=== PATIENT | female | born 1970 | race Caucasian/White ===

== ENCOUNTER 2024-01-24 11:45 | Inpatient (IN) | payer BC ==
[2024-01-24] MEDS ORDERED: Sodium Chloride 0.9% 10 ML Syringe FLUSH PRN (11:49)
[2024-01-24 12:03] LABS: BASOPHILS ABSOLUTE AUTO 0.07 K/uL (0.00-0.20); BASOPHILS PERCENT AUTO 0.8 % (0.0-1.0); EOSINOPHILS ABSOLUTE AUTO 0.23 K/uL (0.00-0.45); EOSINOPHILS PERCENT AUTO 2.6 % (0.0-6.0); HEMATOCRIT 40.3 % (37.0-47.0); IMMATURE GRAN ABSOLUTE AUTO 0.02 K/uL (0.00-0.05); IMMATURE GRAN PERCENT AUTO 0.2 % (0.0-0.4); LYMPHOCYTES ABSOLUTE AUTO 3.31 K/uL (1.00-4.80); LYMPHOCYTES PERCENT AUTO 37.1 % (24.0-44.0); MEAN CORPUSCULAR HEMOGLOBIN 30.3 pg (28.0-32.0); MEAN CORPUSCULAR HGB CONC 34.7 g/dL (32.0-36.0); MEAN CORPUSCULAR VOLUME 87.2 fL (83.0-99.0); MEAN PLATELET VOLUME 9.5 fL (9.4-12.3); MONOCYTES ABSOLUTE AUTO 0.53 K/uL (0.00-0.80); MONOCYTES PERCENT AUTO 5.9 % (0.0-8.0); NEUTROPHILS ABSOLUTE AUTO 4.77 K/uL (1.80-7.70); NEUTROPHILS PERCENT AUTO 53.4 % (41.0-71.0); PLATELET COUNT,PLT 342 K/uL (150-400); RED BLOOD CELL COUNT 4.62 M/uL (4.10-5.30); WHITE BLOOD CELL COUNT,WBC 8.93 K/uL (3.9-11.3)
[2024-01-24] MEDS: Sodium Chloride 0.9% 1,000 ML IV ONE (12:04)
[2024-01-24] MEDS: Ondansetron 4 MG/2 ML SDV IVPUSH ONE (12:05)
[2024-01-24] MEDS: Sodium Chloride 0.9% 2.5 ML Syringe FLUSH PRN (12:05)
[2024-01-24 12:29] LABS: ALBUMIN 3.8 g/dL (3.4-5.0); BILIRUBIN TOTAL 0.6 mg/dL (0.2-1.0); CALCIUM 9.8 mg/dL (8.5-10.1); CARBON DIOXIDE,CO2 25.7 mmol/L (21.0-32.0); CREATININE 0.7 mg/dL (0.6-1.0); EST CRCL DRUG DOSING (CG) 81.18 mL/min; POTASSIUM,K 3.6 mmol/L (3.5-5.1); PROTEIN TOTAL,TP 7.6 g/dL (6.4-8.2)
[2024-01-24 12:35] LABS: APPEARANCE,URINE SLT CLOUDY; BILIRUBIN,URINE NEGATIVE (NEGATIVE); COLOR,URINE YELLOW; GLUCOSE,URINE NEGATIVE (NEGATIVE); KETONES,URINE NEGATIVE (NEGATIVE); LEUKOCYTE ESTERASE,URINE NEGATIVE (NEGATIVE); NITRITE,URINE NEGATIVE (NEGATIVE); OCCULT BLOOD,URINE NEGATIVE (NEGATIVE); PH,URINE 6.5 (5.0-8.0); PROTEIN,URINE NEGATIVE (NEGATIVE); UROBILINOGEN,URINE 0.2 EU/dL (<2.0)
[2024-01-24] MEDS: Iopamidol 755 MG/ML 500 ML Multipack Bottle IVPUSH STA (12:59)
[2024-01-24] MEDS: Piperacillin/Tazobactam 3.375 GM in Sodium Chloride 0.9% 100 ML IV ONE (14:05)
[2024-01-24] MEDS ORDERED: Propofol 200 MG/20 ML SDV ONE ×4 (16:34→22:14)
[2024-01-24] MEDS ORDERED: fentaNYL 100 MCG/2 ML SDV ONE ×2 (16:34→21:37)
[2024-01-24] MEDS ORDERED: Bupivacaine 0.5% 30 ML SDV ONE (16:35)
[2024-01-24] MEDS ORDERED: Rocuronium Bromide 50 MG/5 ML Syringe ONE ×3 (16:36→21:41)
[2024-01-24] MEDS ORDERED: dexmedeTOMIDine HCl 200 MCG/2 ML SDV ONE (16:36)
[2024-01-24] MEDS ORDERED: Bupivacaine 0.25% 30 ML SDV ONE (16:52)
[2024-01-24] MEDS ORDERED: Ropivacaine 0.5% 5 MG/ML 30 ML SDV ONE (16:52)
[2024-01-24] MEDS ORDERED: Dexamethasone 4 MG/ML 5 ML MDV ONE (17:34)
[2024-01-24] MEDS ORDERED: Ondansetron 4 MG/2 ML SDV ONE (17:34)
[2024-01-24] MEDS ORDERED: Sugammadex Sodium 200 MG/2 ML VIAL IV ONE (18:13)
[2024-01-24] MEDS ORDERED: Ketorolac 30 MG/ML SDV ONE (18:13)
[2024-01-24] MEDS ORDERED: Water For Injection, Sterile 20 ML ONE (18:21)
[2024-01-24] MEDS ORDERED: Magnesium Sulfate (4.06 MEQ/ML) 5 GM/10 ML SDV ONE (18:24)
[2024-01-24] MEDS ORDERED: Ketamine HCL/NACL, ISO-OSM 50 MG/5 ML Syringe ONE (20:22)
[2024-01-24] MEDS ORDERED: propofoL 50 ML ONE ×2 (20:38→21:14)
[2024-01-24] MEDS ORDERED: HYDROmorphone 2 MG/ML Syringe IVPUSH PRN (22:42)
[2024-01-24] MEDS ORDERED: Naloxone 0.4 MG/ML SDV IVPUSH PRN (22:42)
[2024-01-24] MEDS ORDERED: Ondansetron 4 MG/2 ML SDV IVPUSH PRN (22:42)
[2024-01-24] MEDS ORDERED: Acetaminophen/HYDROcodone 325-5 MG Tab PO PRN (22:42)
[2024-01-24] MEDS ORDERED: Acetaminophen 1,000 MG in Premix Bag 1 BAG IV PRN (22:50)
[2024-01-25] MEDS: Piperacillin/Tazobactam 3.375 GM in Sodium Chloride 0.9% 100 ML IV ONE (00:20)
[2024-01-25] MEDS: HYDROmorphone 1 MG/ML Syringe ONE (00:21)
[2024-01-25] MEDS: Sodium Chloride 0.9% 1,000 ML IV SCH (01:03)
[2024-01-25] MEDS: Piperacillin/Tazobactam 4.5 GM in Sodium Chloride 0.9% 100 ML IV SCH (01:03)
[2024-01-25] MEDS: Sodium Chloride 0.9% 100 ML IV ONE (03:32)
[2024-01-25] MEDS: Sodium Chloride 0.9% 100 ML ONE (03:32)
[2024-01-25 06:19] LABS: BASOPHILS ABSOLUTE AUTO 0.02 K/uL (0.00-0.20); BASOPHILS PERCENT AUTO 0.1 % (0.0-1.0); HEMATOCRIT 43.5 % (37.0-47.0); HEMOGLOBIN 14.4 g/dL (12.0-16.0); IMMATURE GRAN ABSOLUTE AUTO 0.05 K/uL (0.00-0.05); IMMATURE GRAN PERCENT AUTO 0.4 % (0.0-0.4); LYMPHOCYTES ABSOLUTE AUTO 1.21 K/uL (1.00-4.80); LYMPHOCYTES PERCENT AUTO 8.8 % (24.0-44.0); MEAN CORPUSCULAR HEMOGLOBIN 29.9 pg (28.0-32.0); MEAN CORPUSCULAR HGB CONC 33.1 g/dL (32.0-36.0); MEAN CORPUSCULAR VOLUME 90.2 fL (83.0-99.0); MEAN PLATELET VOLUME 10.1 fL (9.4-12.3); MONOCYTES ABSOLUTE AUTO 0.26 K/uL (0.00-0.80); MONOCYTES PERCENT AUTO 1.9 % (0.0-8.0); NEUTROPHILS PERCENT AUTO 88.8 % (41.0-71.0); PLATELET COUNT,PLT 353 K/uL (150-400); RED BLOOD CELL COUNT 4.82 M/uL (4.10-5.30); WHITE BLOOD CELL COUNT,WBC 13.74 K/uL (3.9-11.3)
[2024-01-25 06:36] LABS: CALCIUM 9.1 mg/dL (8.5-10.1); CARBON DIOXIDE,CO2 26.2 mmol/L (21.0-32.0); EST CRCL DRUG DOSING (CG) 56.83 mL/min; POTASSIUM,K 3.6 mmol/L (3.5-5.1)
[2024-01-25] MEDS: Pantoprazole 40 MG in Sodium Chloride 0.9% 10 ML IVPUSH SCH (09:02)
[2024-01-25] MEDS: HYDROmorphone 1 MG/ML Syringe IVPUSH PRN (09:54)
[2024-01-26 06:16] LABS: BASOPHILS ABSOLUTE AUTO 0.03 K/uL (0.00-0.20); BASOPHILS PERCENT AUTO 0.3 % (0.0-1.0); EOSINOPHILS ABSOLUTE AUTO 0.07 K/uL (0.00-0.45); EOSINOPHILS PERCENT AUTO 0.7 % (0.0-6.0); HEMATOCRIT 32.6 % (37.0-47.0); HEMOGLOBIN 10.9 g/dL (12.0-16.0); IMMATURE GRAN ABSOLUTE AUTO 0.03 K/uL (0.00-0.05); IMMATURE GRAN PERCENT AUTO 0.3 % (0.0-0.4); LYMPHOCYTES ABSOLUTE AUTO 2.73 K/uL (1.00-4.80); MEAN CORPUSCULAR HEMOGLOBIN 30.1 pg (28.0-32.0); MEAN CORPUSCULAR HGB CONC 33.4 g/dL (32.0-36.0); MEAN CORPUSCULAR VOLUME 90.1 fL (83.0-99.0); MEAN PLATELET VOLUME 9.8 fL (9.4-12.3); MONOCYTES ABSOLUTE AUTO 0.67 K/uL (0.00-0.80); MONOCYTES PERCENT AUTO 6.4 % (0.0-8.0); NEUTROPHILS ABSOLUTE AUTO 6.95 K/uL (1.80-7.70); NEUTROPHILS PERCENT AUTO 66.3 % (41.0-71.0); PLATELET COUNT,PLT 262 K/uL (150-400); RED BLOOD CELL COUNT 3.62 M/uL (4.10-5.30); WHITE BLOOD CELL COUNT,WBC 10.48 K/uL (3.9-11.3)
[2024-01-26 06:40] LABS: CALCIUM 8.2 mg/dL (8.5-10.1); CARBON DIOXIDE,CO2 24.4 mmol/L (21.0-32.0); CREATININE 0.7 mg/dL (0.6-1.0); EST CRCL DRUG DOSING (CG) 81.18 mL/min; POTASSIUM,K 3.2 mmol/L (3.5-5.1)
[2024-01-26] MEDS ORDERED: Sodium Chloride 0.9% 2.5 ML Syringe FLUSH PRN (10:37)
[2024-01-26] MEDS ORDERED: Sodium Chloride 0.9% 10 ML Syringe FLUSH PRN (10:37)
[2024-01-26] MEDS: Potassium Chloride 10 MEQ in Premix Bag 1 BAG IV SCH (11:33)
[2024-01-26] MEDS: atorvaSTATin 40 MG Tab PO SCH (20:57)
[2024-01-27 05:39] LABS: BASOPHILS ABSOLUTE AUTO 0.09 K/uL (0.00-0.20); BASOPHILS PERCENT AUTO 0.9 % (0.0-1.0); EOSINOPHILS ABSOLUTE AUTO 0.39 K/uL (0.00-0.45); EOSINOPHILS PERCENT AUTO 4.1 % (0.0-6.0); HEMATOCRIT 31.5 % (37.0-47.0); HEMOGLOBIN 10.8 g/dL (12.0-16.0); IMMATURE GRAN ABSOLUTE AUTO 0.03 K/uL (0.00-0.05); IMMATURE GRAN PERCENT AUTO 0.3 % (0.0-0.4); LYMPHOCYTES ABSOLUTE AUTO 3.72 K/uL (1.00-4.80); LYMPHOCYTES PERCENT AUTO 38.7 % (24.0-44.0); MEAN CORPUSCULAR HEMOGLOBIN 30.5 pg (28.0-32.0); MEAN CORPUSCULAR HGB CONC 34.3 g/dL (32.0-36.0); MEAN PLATELET VOLUME 9.8 fL (9.4-12.3); MONOCYTES ABSOLUTE AUTO 0.63 K/uL (0.00-0.80); MONOCYTES PERCENT AUTO 6.5 % (0.0-8.0); NEUTROPHILS ABSOLUTE AUTO 4.76 K/uL (1.80-7.70); NEUTROPHILS PERCENT AUTO 49.5 % (41.0-71.0); PLATELET COUNT,PLT 285 K/uL (150-400); RED BLOOD CELL COUNT 3.54 M/uL (4.10-5.30); WHITE BLOOD CELL COUNT,WBC 9.62 K/uL (3.9-11.3)
[2024-01-27 06:00] LABS: CALCIUM 8.5 mg/dL (8.5-10.1); CARBON DIOXIDE,CO2 27.7 mmol/L (21.0-32.0); CREATININE 0.8 mg/dL (0.6-1.0); EST CRCL DRUG DOSING (CG) 71.03 mL/min; POTASSIUM,K 3.1 mmol/L (3.5-5.1)
== END 2024-01-28 18:54 | disposition home or self-care (01) | DRG 233 ==
LOC: MW.ED 11:45 → MW.SDS 14:30 → MW.ED 17:10 → MW.MS 19:40 → MW.SDS 22:43 → MW.MS 22:43
PROVIDERS: ADMIT Surgery; ATTEND Surgery
PROC: 0WJG4ZZ Inspection of Peritoneal Cavity, Percutaneous Endoscopic Approach (ICD-10-PCS; 2024-01-24)
PROC: 3E0M05Z Introduction of Adhesion Barrier into Peritoneal Cavity, Open Approach (ICD-10-PCS; 2024-01-24)
PROC: 0DTJ0ZZ Resection of Appendix, Open Approach (ICD-10-PCS; principal; 2024-01-24 16:39)
DX: K35.33 Acute appendicitis with perforation, localized peritonitis, and gangrene, with abscess (principal); K42.9 Umbilical hernia without obstruction or gangrene; E78.00 Pure hypercholesterolemia, unspecified; E11.9 Type 2 diabetes mellitus without complications; Z88.0 Allergy status to penicillin; Z88.1 Allergy status to other antibiotic agents; Z79.899 Other long term (current) drug therapy; Z90.710 Acquired absence of both cervix and uterus
CPT/HCPCS: 00840; 36415; 64488; 74177; 74177-26; 80048; 80053; 81003; 82947; 85025; 96361; 96365; 96375; 99284; 99285-25; A9270-GY; J0131; J0665; J1100; J1170; J1885; J2405; J2470; J2543; J2704; J2795; J3010; J3475; J3480; J3490; J7030; Q9967

== ENCOUNTER 2024-11-14 09:29 | Observation (INO) | payer BC ==
[~2024-11-14 09:29] MED LIST: Albuterol 0.083% 2.5 MG/3 ML Neb Soln NEB PRN; Bupivacaine 0.5% 30 ML SDV ONE; HYDROmorphone 1 MG/ML Syringe IVPUSH PRN; Metoclopramide 10 MG/2 ML SDV IVPUSH PRN; Morphine 2 MG/ML SYRINGE IVPUSH PRN; Naloxone 0.4 MG/ML SDV IVPUSH PRN; Ondansetron 4 MG/2 ML SDV IVPUSH PRN; Phenylephrine HCl In 0.9% NaCl 1 MG/10 ML Syringe IVPUSH PRN; fentaNYL 50 MCG/ML SDV IVPUSH PRN
[2024-11-14] MEDS ORDERED: dexmedeTOMIDine HCl 200 MCG/2 ML SDV ONE (09:48)
[2024-11-14] MEDS ORDERED: Rocuronium Bromide 50 MG/5 ML Syringe ONE ×2 (09:48→11:51)
[2024-11-14] MEDS ORDERED: Propofol 200 MG/20 ML SDV ONE (09:49)
[2024-11-14] MEDS ORDERED: fentaNYL 250 MCG/5 ML SDV ONE ×2 (09:49→10:47)
[2024-11-14] MEDS ORDERED: propofoL 500 MG/50 ML 50 ML ONE ×3 (09:49→11:48)
[2024-11-14] MEDS ORDERED: Morphine 10 MG/ML SDV ONE (09:49)
[2024-11-14] MEDS: Lactated Ringers 1,000 ML IV SCH (09:51)
[2024-11-14] MEDS: Acetaminophen 500 MG Tab PO ONE (09:52)
[2024-11-14] MEDS: Pregabalin 75 MG Cap PO SCH (09:52)
[2024-11-14] MEDS ORDERED: Ropivacaine 0.5% 5 MG/ML 30 ML SDV ONE (09:59)
[2024-11-14] MEDS: Scopalamine 1mg/3day Transdermal Patch TRDERM PRN (10:03)
[2024-11-14] MEDS ORDERED: Ketamine HCL/NACL, ISO-OSM 50 MG/5 ML Syringe ONE (10:32)
[2024-11-14] MEDS ORDERED: Lidocaine 2% 11 ML Jelly Filled Syringe ONE (10:32)
[2024-11-14] MEDS ORDERED: ceFAZolin 2 GM Vial ONE (10:53)
[2024-11-14 12:25] LABS: ALANINE AMINOTRANSFERASE,ALT <6 IU/L (14-63); ALBUMIN 2.9 g/dL (3.4-5.0); ALKALINE PHOSPHATASE 79 U/L (46-116); ASPARTATE AMNIOTRANSFERASE,AST 15 IU/L (15-37); BILIRUBIN TOTAL 0.3 mg/dL (0.2-1.0); BLOOD UREA NITROGEN,BUN 6 mg/dL (7.0-18.0); CALCIUM 8.4 mg/dL (8.5-10.1); CARBON DIOXIDE,CO2 24.9 mmol/L (21.0-32.0); CHLORIDE,CL 105 mmol/L (98-107); CREATININE 0.7 mg/dL (0.6-1.0); EST CRCL DRUG DOSING (CG) 81.18 mL/min; ESTIMATED GFR 104 mL/min (>60); GLUCOSE RANDOM 99 mg/dL (74-106); POTASSIUM,K 3.6 mmol/L (3.5-5.1); PROTEIN TOTAL,TP 5.9 g/dL (6.4-8.2); SODIUM,NA 138 mmol/L (136-145)
[2024-11-14] MEDS ORDERED: Phenylephrine HCl In 0.9% NaCl 1 MG/10 ML Syringe ONE (12:35)
[2024-11-14] MEDS ORDERED: Glycopyrrolate 0.2 MG/ML SDV ONE (12:47)
[2024-11-14] MEDS ORDERED: Sugammadex Sodium 200 MG/2 ML VIAL IV ONE (13:09)
[2024-11-14] MEDS ORDERED: Ketorolac 30 MG/ML SDV ONE (13:09)
[2024-11-14] MEDS ORDERED: Ondansetron 4 MG/2 ML SDV ONE (13:09)
[2024-11-14] MEDS ORDERED: Dexamethasone 4 MG/ML 5 ML MDV ONE (13:09)
[2024-11-14] MEDS ORDERED: Magnesium Sulfate (4.06 MEQ/ML) 5 GM/10 ML SDV ONE (13:31)
[2024-11-14] MEDS: ceFAZolin 2 GM in Water For Injection, Sterile 20 ML IVPUSH ONE (15:30)
[2024-11-14] MEDS: Acetaminophen 500 MG Tab ONE (15:30)
[2024-11-14] MEDS ORDERED: Ondansetron 4 MG/2 ML SDV IVPUSH PRN (15:56)
[2024-11-14] MEDS ORDERED: Polyethylene Glycol 3350 Powder 17 GM Packet PO PRN (15:56)
[2024-11-14] MEDS ORDERED: Glucagon,Human Recombinant 1 MG Vial IM PRN (16:03)
[2024-11-14] MEDS ORDERED: 50% Dextrose in Water 50 ML Syringe IVPUSH PRN (16:03)
[2024-11-14] MEDS: Insulin Aspart 100 Units/ML 3 ML Pen SUBCUT SCH (16:40)
[2024-11-14] MEDS: oxyCODONE 5 MG Tab PO PRN (20:04)
[2024-11-14] MEDS: Acetaminophen 325 MG Tab PO PRN (20:08)
[2024-11-15 06:01] LABS: HEMATOCRIT 39.2 % (37.0-47.0); HEMOGLOBIN 13.5 g/dL (12.0-16.0); MEAN CORPUSCULAR HEMOGLOBIN 29.9 pg (28.0-32.0); MEAN CORPUSCULAR HGB CONC 34.4 g/dL (32.0-36.0); MEAN CORPUSCULAR VOLUME 86.9 fL (83.0-99.0); PLATELET COUNT,PLT 350 K/uL (150-400); RED BLOOD CELL COUNT 4.51 M/uL (4.10-5.30); WHITE BLOOD CELL COUNT,WBC 14.03 K/uL (3.9-11.3)
[2024-11-15 06:17] LABS: CALCIUM 9.1 mg/dL (8.5-10.1); CREATININE 0.8 mg/dL (0.6-1.0); EST CRCL DRUG DOSING (CG) 71.03 mL/min; POTASSIUM,K 3.6 mmol/L (3.5-5.1)
[2024-11-15] MEDS: Morphine 2 MG/ML SYRINGE IVPUSH PRN (07:55)
== END 2024-11-15 10:12 | disposition home or self-care (01) ==
LOC: MW.SDS 09:29 → MW.ICU 15:52 → MW.SDS 16:42 → MW.ICU 11-15 10:12
PROVIDERS: ADMIT Surgery; ATTEND Family Medicine
DX: K43.2 Incisional hernia without obstruction or gangrene (principal); E11.9 Type 2 diabetes mellitus without complications; J45.909 Unspecified asthma, uncomplicated; E78.00 Pure hypercholesterolemia, unspecified; Z87.891 Personal history of nicotine dependence; Z79.899 Other long term (current) drug therapy
CPT/HCPCS: 36415; 49615; 80048; 80053; 82947; 84484; 85027; A9270; C1781; J0665; J0690; J1100; J1596; J1885; J2270; J2272; J2371; J2704; J2795; J3010; J3475; J7120; 00752; 64488; 99222; 99239; J2405; J3490